=== PATIENT | male | born 1995 | race Two or more races ===

== ENCOUNTER 2022-12-22 15:28 | Emergency (ER) | payer OTHER ==
[2022-12-22 15:56] VITALS: BP 135/79; PULSE 88; RESP 18; TEMP 98.2; BMI 26.6
[2022-12-22] MEDS ORDERED: FAMOTIDINE 10 MG TABLET PO ONE (16:14)
[2022-12-22] MEDS ORDERED: MAG HYDROX/AL HYDROX/SIMETH 30 ML UNIT-DOSE CUP PO ONE (16:15)
[2022-12-22 17:03] LABS: BASO % 0.4 % (0-2.0); EOS % 0.3 % (0-4.5); HEMATOCRIT 47.2 % (35.4-49); HEMOGLOBIN 16.3 GM/dL (11.7-16.9); LYMPH % 21.6 % (8-40); MCH 29.6 pg (25.7-33.7); MCHC 34.5 g/dl (32.0-35.9); MEAN PLT VOLUME 6.8 fl (7.5-11.1); MONO % 7.9 % (3.8-10.2); NEUT % 69.8 % (42.8-82.8); PLATELET COUNT 377 10^3/uL (134-434); RBC 5.49 M/mm3 (4.00-5.60); RDW 13.3 % (11.9-15.9); WHITE BLOOD COUNT 10.7 K/mm3 (4.0-10.0)
[2022-12-22] MEDS ORDERED: FAMOTIDINE 10 MG TABLET ONE (17:04)
[2022-12-22] MEDS ORDERED: MAG HYDROX/AL HYDROX/SIMETH 30 ML UNIT-DOSE CUP ONE (17:05)
[2022-12-22 17:17] LABS: CHLORIDE 105 mmol/L (98-107); POTASSIUM 4.2 mmol/L (3.5-5.1); SODIUM 140 mmol/L (136-145)
[2022-12-22 17:19] LABS: CALCIUM 9.7 mg/dL (8.5-10.1)
[2022-12-22 17:20] LABS: ALBUMIN 4.6 g/dl (3.4-5.0); ANION GAP 4 MMOL/L (8-16); BLOOD UREA NITROGEN 13.9 mg/dL (7-18); CO2 30 mmol/L (21-32); GLUCOSE,RANDOM 99 mg/dL (74-106); LIPASE 92 U/L (73-393)
[2022-12-22 17:23] LABS: CREATININE 1.3 mg/dL (0.55-1.3); SGOT/AST 36 U/L (15-37); SGPT/ALT 86 U/L (13-61)
[2022-12-22 17:24] LABS: TOT PROT 8.5 g/dl (6.4-8.2)
[2022-12-22 17:25] LABS: BILIRUBIN,TOTAL 1.6 mg/dL (0.2-1)
[2022-12-22 17:26] LABS: ALK PHOS 84 U/L (45-117)
== END 2022-12-22 17:53 | disposition home or self-care (01) ==
LOC: JER 15:28
DX: R10.13 Epigastric pain (principal)
CPT/HCPCS: 36415; 71046-TC-FY; 80053; 82550; 82553; 83690; 84484; 85025; 93005; 93010; 99285-25